=== PATIENT | male | born 1935 | race Caucasian/White ===

== ENCOUNTER 2016-08-02 23:58 | Emergency (ER) | payer OTHER ==
[~2016-08-02] VITALS: Ht 172.7 cm; Wt 77.1 kg
[2016-08-03] MEDS ORDERED: FLUORESCEIN SODIUM OPHTH 1 EA STRIP ONE (00:03)
[2016-08-03] MEDS ORDERED: TETRACAINE HCL/PF 0.5% UD 2 ML BOTTLE ONE (00:03)
--- NOTE | 2016-08-03 00:05 | NUR ---
To bed 7 a 80 yo male bibself with c/o bilateral eye pain/irritation. patient denies trauma/foreign body in contact with eyes. eyes appears red. patient is aaox4, ambulatory with steady gait. vss. initiated comfort measures. awaiting for er md uribe.
--- NOTE | 2016-08-03 00:25 | NUR ---
Patient discharged to home in stable condition. Written and verbal after care instructions given. Patient verbalizes understanding of instruction. Patient is ambulatory with steady gait.
[2016-08-03 00:26] VITALS: BP 127/80
[2016-08-03] MEDS ORDERED: FLUORESCEIN SODIUM OPHTH 1 EA STRIP OP ONE (00:30)
== END 2016-08-03 00:35 | disposition home or self-care (01) ==
LOC: ER 08-03 00:02
DX: S05.01XA Injury of conjunctiva and corneal abrasion without foreign body, right eye, initial encounter (principal); S05.02XA Injury of conjunctiva and corneal abrasion without foreign body, left eye, initial encounter; F32.9 Major depressive disorder, single episode, unspecified; I10 Essential (primary) hypertension; X58.XXXA Exposure to other specified factors, initial encounter; Y92.89 Other specified places as the place of occurrence of the external cause; Y93.89 Activity, other specified; Y99.8 Other external cause status
CPT/HCPCS: 99283; A4606; Z7610

== ENCOUNTER 2017-01-25 16:23 | Emergency (ER) | payer MEDICARE, OTHER ==
[~2017-01-25] VITALS: Ht 170.2 cm; Wt 63.5 kg
--- NOTE | 2017-01-25 16:30 | NUR ---
RJ KENNEDY [facility]- NO KO, DENIES HITTING HEAD. NO PAIN OR DISCOMFORT. VSS
[2017-01-25 17:24] LABS: BASOPHILS % (AUTO) 0.4 % (0.0-2.0); EOSINOPHILS # (AUTO) 0.1 /CMM (0.0-0.7); EOSINOPHILS % (AUTO) 1.8 % (0.0-6.0); HEMATOCRIT 50 % (39-51); HEMOGLOBIN 16.8 g/dL (13.5-17.5); LYMPHOCYTES % (AUTO) 24.5 % (20.0-44.0); MEAN CORPUSCULAR HEMOGLOBIN 34 PG (26.0-33.0); MEAN CORPUSCULAR HGB CONC 34 g/dl (31.0-36.0); MEAN CORPUSCULAR VOLUME 102 fL (80-96); MONOCYTES # (AUTO) 0.7 /CMM (0.1-1.30); MONOCYTES % (AUTO) 9.1 % (2.0-12.0); NEUTROPHILS # (AUTO) 5.2 /CMM (1.8-8.9); NEUTROPHILS % (AUTO) 64.2 % (43.0-81.0); PLATELET COUNT (AUTO) 164 /CMM (150-450); RDW COEFFICIENT OF VARIATION 13.5 (11.5-15.0); RED BLOOD CELL COUNT(AUTO) 4.92 MIL/uL (4.5-6.0)
[2017-01-25 17:28] LABS: CALCIUM, SERUM 9.4 mg/dL (8.5-10.1); CARBON DIOXIDE 27 mmol/L (21-32); CHLORIDE 105 mmol/L (98-107); CREATININE 1.2 mg/dL (0.6-1.3); GLUCOSE 82 mg/dL (74-106); SODIUM SERUM 139 mmol/L (136-145); UREA NITROGEN, BLOOD 24 mg/dL (7-18)
[2017-01-25 17:34] LABS: INR 0.94 (0.87-1.13); PROTHROMBIN TIME 9.8 SECS (9.5-12.7)
--- NOTE | 2017-01-25 17:47 | NUR ---
Patient discharged to home in stable condition. Written and verbal after care instructions given. Patient verbalizes understanding of instruction.
[2017-01-25 17:48] VITALS: BP 181/85
== END 2017-01-25 17:50 | disposition home or self-care (01) ==
LOC: ER 16:27
DX: S00.03XA Contusion of scalp, initial encounter (principal); R00.1 Bradycardia, unspecified; I10 Essential (primary) hypertension; R51 Headache; F32.9 Major depressive disorder, single episode, unspecified; F10.10 Alcohol abuse, uncomplicated; R79.1 Abnormal coagulation profile; W01.198A Fall on same level from slipping, tripping and stumbling with subsequent striking against other object, initial encounter; Y93.9 Activity, unspecified; Y92.89 Other specified places as the place of occurrence of the external cause; Y99.8 Other external cause status
CPT/HCPCS: 36415; 70450; 80048; 85025; 85730; 99285; A4606; Z7610

== ENCOUNTER 2017-04-15 00:41 | Emergency (ER) | payer MEDICARE, OTHER ==
[~2017-04-15] VITALS: Ht 172.7 cm; Wt 72.6 kg
[2017-04-15 00:55] VITALS: BP 147/83
--- NOTE | 2017-04-15 01:07 | NUR ---
DR ROMERO AT BEDSIDE TO EVALUATE PATIENT.
[2017-04-15] MEDS ORDERED: HYDROCODONE/APAP 5/325MG 1 EACH TABLET ONE (01:19)
[2017-04-15] MEDS ORDERED: GABAPENTIN 100 MG CAPSULE ONE (01:19)
[2017-04-15] MEDS ORDERED: HYDROCODONE/APAP 5/325MG 1 EACH TABLET PO ONE (01:30)
[2017-04-15] MEDS ORDERED: GABAPENTIN 100 MG CAPSULE PO ONE (01:30)
== END 2017-04-15 01:28 | disposition home or self-care (01) ==
LOC: ER 00:44
DX: G62.9 Polyneuropathy, unspecified (principal); I10 Essential (primary) hypertension; F32.9 Major depressive disorder, single episode, unspecified
CPT/HCPCS: A4606; Z7610

== ENCOUNTER 2018-08-08 14:30 | Inpatient (IN) | payer OTHER ==
[~2018-08-08] VITALS: Ht 170.2 cm; Wt 52.6 kg
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
--- NOTE | 2018-08-08 15:04 | NUR ---
JUNAID CALLED FOR PLUMBER'S HELPER
--- NOTE | 2018-08-08 15:15 | NUR ---
VISUAL MERCHANDISING SPECIALIST JUNAID AT BEDSIDE FOR CONSULT.
[2018-08-08 15:16] LABS: BASOPHILS # (AUTO) 0.1 /CMM (0.0-0.2); BASOPHILS % (AUTO) 1.2 % (0.0-2.0); EOSINOPHILS % (AUTO) 1.2 % (0.0-6.0); HEMATOCRIT 44 % (39-51); HEMOGLOBIN 15.4 g/dL (13.5-17.5); LYMPHOCYTES # (AUTO) 1.3 /CMM (0.8-4.8); LYMPHOCYTES % (AUTO) 20.3 % (20.0-44.0); MEAN CORPUSCULAR HGB CONC 35 g/dl (31.0-36.0); MEAN CORPUSCULAR VOLUME 104 fL (80-96); MONOCYTES # (AUTO) 0.5 /CMM (0.1-1.30); MONOCYTES % (AUTO) 7.9 % (2.0-12.0); NEUTROPHILS # (AUTO) 4.3 /CMM (1.8-8.9); NEUTROPHILS % (AUTO) 69.4 % (43.0-81.0); PLATELET COUNT (AUTO) 196 /CMM (150-450); RED BLOOD CELL COUNT(AUTO) 4.24 MIL/uL (4.5-6.0); WHITE BLOOD COUNT (AUTO) 6.2 K/uL (4.3-11.0)
[2018-08-08 15:23] LABS: CALCIUM, SERUM 9.5 mg/dL (8.5-10.1); CARBON DIOXIDE 25 mmol/L (21-32); CHLORIDE 105 mmol/L (98-107); CREATININE 1.3 mg/dL (0.6-1.3); GLUCOSE 91 mg/dL (74-106); SODIUM SERUM 140 mmol/L (136-145); UREA NITROGEN, BLOOD 30 mg/dL (7-18)
[2018-08-08 15:27] LABS: APPEARANCE,URINE Clear (CLEAR); BILIRUBIN,URINE Negative (NEGATIVE); BLOOD, URINE Negative Ery/uL (NEGATIVE); COLOR,URINE Yellow (YELLOW); KETONES,URINE Trace (NEGATIVE); LEUKOCYTE ESTERASE ,URINE Negative (NEGATIVE); NITRITE, URINE Negative (NEGATIVE); PH,URINE 5.5 (5.0-8.0); PROTEIN,URINE Negative (NEGATIVE); UGLUCOSE Negative (NEGATIVE); UROBILINOGEN,URINE 0.2 EU/dL (0.2)
[2018-08-08 15:29] LABS: ALANINE AMINOTRANSFERASE 23 U/L (12-78); ALBUMIN 3.9 g/dL (3.4-5.0); ALCOHOL, BLOOD < 3 mg/dL (0-0); ALKALINE PHOSPHATASE 55 U/L (46-116); ASPARTATE AMINOTRANSFERASE 32 U/L (15-37); BILIRUBIN,DIRECT 0.3 mg/dL (0.0-0.2); BILIRUBIN,TOTAL 2.2 mg/dL (0.2-1.0); SALICYLATE < 2.8 mg/dL (2.8-20.0); TOTAL PROTEIN, SERUM 7.3 g/dL (6.4-8.2)
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
[2018-08-08] MEDS ORDERED: FLUO40CA49 PO (16:06)
[2018-08-08] MEDS ORDERED: ATEN50TA PO (16:06)
[2018-08-08] MEDS ORDERED: ALLO300T2 PO (16:06)
[2018-08-08] MEDS ORDERED: GABA-532 PO (16:06)
[2018-08-08] MEDS ORDERED: ALPR0.255 PO (16:06)
[2018-08-08] MEDS ORDERED: HYDR12.5 PO (16:06)
[2018-08-08] MEDS ORDERED: IRBE150T28 PO (16:06)
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
[2018-08-08 16:10] LABS: EOSINOPHILS % (MANUAL) 1 % (0-4); LYMPHOCYTES % (MANUAL) 21 % (16-48); MONOCYTES % (MANUAL) 6 % (0-11.0); NEUTROPHILS % (MANUAL) 72 (42-76)
--- NOTE | 2018-08-08 17:38 | NUR ---
CALLED LUCÍA MORELOS FOR EVAL.
--- NOTE | 2018-08-08 18:31 | NUR ---
CALLED FOR [facility] BED. PINKY AT BEDSIDE.
--- NOTE | 2018-08-08 19:38 | NUR ---
PATIENT IN STABLE CONDITION SEEN BY PORTER FOR EVALUATION. PATIENT IN NAD, VSS. ENDORSED TO [facility] FOR [facility]. WAITING FOR A BED.
--- NOTE | 2018-08-08 20:21 | NUR ---
REPORT GIVEN TO RN AT [facility]
[2018-08-08 20:50] VITALS: BP 163/82
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
[2018-08-08] MEDS ORDERED: MAGNESIUM HYDROXIDE 30 ML UDC PO PRN (21:30)
[2018-08-08] MEDS ORDERED: ACETAMINOPHEN 325 MG TABLET PO PRN (21:30)
[2018-08-08] MEDS ORDERED: TEMAZEPAM 7.5 MG CAPSULE PO PRN (21:30)
[2018-08-08] MEDS ORDERED: MAG HYDROX/AL HYDROX/SIMETH 30 ML UDC PO PRN (21:30)
[2018-08-08] MEDS ORDERED: clonazePAM 0.5 MG TABLET PO PRN (21:30)
--- NOTE | 2018-08-08 21:30 | NUR ---
RN NOTES: SPOKE WITH JW MONAHAN. INFORMED HIM THAT PT IS HERE AND MED RECON NEEDS TO BE DONE. JW MONAHAN AWARE.
--- NOTE | 2018-08-08 21:50 | NUR ---
RN NOTES: PT REQUESTING FOR SLEEPING AID. PT WAS ADMINISTERED RESTORIL 7.5MG PO. WILL CONTINUE TO MONITOR.
[2018-08-09 01:52] VITALS: BP 130/71
--- NOTE | 2018-08-09 03:36 | NUR ---
RN NOTES: PT VERY ANXIOUS THAT HE CANNOT SLEEP EVEN WITH THE RISPERDAL. PT GIVEN KLONOPIN 0.25MG PO. "YOU HAVE NO IDEA WHAT I HAVE TO GO THROUGH TOMORROW WHEN I GET OUT OF HERE." WHEN ASKED, PT DID NOT EXPAND. WILL CONTINUE TO MONITOR.
[2018-08-09 08:00] VITALS: BP 121/68
[2018-08-09] MEDS ORDERED: ALLOPURINOL 100 MG TABLET PO SCH (09:00)
[2018-08-09] MEDS ORDERED: Medication Not On Formulary EA (Fluoxetine Hcl 40 MG) PO SCH (09:00)
[2018-08-09] MEDS ORDERED: LOSARTAN POTASSIUM 50 MG TABLET PO SCH (09:00)
[2018-08-09] MEDS ORDERED: IRBESARTAN (150MG) 150 MG TABLET PO SCH (09:00)
[2018-08-09] MEDS ORDERED: HYDROCHLOROTHIAZIDE 25 MG TABLET PO SCH (09:00)
[2018-08-09] MEDS ORDERED: ATENOLOL 50 MG TABLET PO SCH (09:00)
[2018-08-09] MEDS ORDERED: GABAPENTIN 100 MG CAPSULE PO SCH (09:00)
[2018-08-09] MEDS ORDERED: ENSURE ENLIVE 237 ML LIQUID (VANILLA) PO SCH (12:00)
--- NOTE | 2018-08-09 12:15 | NUR ---
UR Note: Santos ([phone]) from [facility] called the SW and stated that he does not see criteria for inpatient stay for the pt. He stated that he would like any records to be sent over and that he may have to schedule a peer to peer review.
--- NOTE | 2018-08-09 13:10 | NUR ---
SENG called the pt's brother, Ron ([phone]), and informed him that the pt is being discharged back to his home today. He stated that he would be willing to pear picker the pt and assist him in being discharged home. He stated that he would arrive around 4pm.
--- NOTE | 2018-08-09 16:06 | NUR ---
Discharge Note: Pt was discharged back to his home located at [address] [place] [id number]; ([phone]). Pt was picked up by his brother, Ron ([phone]), around 4:30pm. Upon discharge, the pt appeared to be in a euthymic mood and presented with a cooperative affect. Pt denied both suicidal and homicidal ideation as well as auditory and visual hallucinations. Pt was referred to [facility] [place] [address] [place] [address]; ; fax was sent to: [phone], for psychiatric services. Pt will continue to be under the care of his cherry cutter, Dr. Leif Arenas, located at [address] [place] [id number]; .
--- NOTE | 2018-08-09 16:20 | NUR ---
[facility]/RN-NOTES PATIENT DISCHARGE TO HOME TODAY. DR. FIELDS ( PSYCHIATRIST) AND GODFREY PATEL ( ELECTRONICS MECHANIC APPRENTICE) AWARE AND AGREES OF PATIENT DISCHARGE WITH ORDERS. DISCHARGE MEDICATION WAS REVIEWED WITH THE PATIENT WITH UNDERSTANDING ALSO INSTRUCTED PATIENT TO F/U WITH PRIMARY PHYSICIAN AND PSYCHIATRIST AND GO TO THE NEAREST EMERGENCY FACILITY OR CALL 911 FOR EMERGENCY.PATIENT SIGNS ALL DISCHARGE PAPERS ,RX WAS GIVEN TO THE PATIENT, PATIENT DID NOT VERBALIZE SI/HI,DENIES VISUAL/AUDITORY HALLUCINATIONS AT THE TIME OF DISCHARGE. PATIENT LEFT THE UNIT IN STABLE CONDITION, AMBULATORY WITH STEADY GAIT,LEFT WITH ALL BELONGINGS. PATIENT WAS ACCOMPANIED IN THE LOBBY FOR SAFETY. TRUCK HOP BY BY BROTHER DAYANA MAS VIA PRIVATE CAR.
[2018-08-09 16:23] VITALS: BP 134/82
--- NOTE | 2018-08-10 12:32 | NUR ---
Psychosocial Note: Pt was evaluated by his psychiatrist, Dr. Hernandez, upon admission and stated that pt does not meet criteria for inpatient stay. Pt did not present as gravely disabled, danger to others, or danger to self. Pt is alert and oriented x4 (time, place, self and situation). Pts initial discharge plan is to return to his home located at [address] [place] [address]; ([phone]). Pt is ambulatory with a steady gait. Pt appeared to be well groomed and appropriately dressed. Pt denied both suicidal and homicidal ideation as well as auditory and visual hallucinations. Pt appeared to be in a euthymic mood and presented as a cooperative affect. Pts insight and judgment is fair.
--- NOTE | 2018-08-10 13:11 | NUR ---
UR Note: SENG faxed a discharge clinical to Santos from [facility] to the fax number: [phone].
== END 2018-08-09 16:20 | disposition home or self-care (01) | DRG 880 ==
LOC: ER 14:34 → GPS 19:45
PROVIDERS: ADMIT Psychiatry & Neurology Psychiatry; ATTEND Internal Medicine
DX: F41.9 Anxiety disorder, unspecified (principal); I10 Essential (primary) hypertension; Z79.899 Other long term (current) drug therapy; F10.20 Alcohol dependence, uncomplicated; Y90.0 Blood alcohol level of less than 20 mg/100 ml
CPT/HCPCS: 36415; 80048-TC; 80076-TC; 80305; 81000-TC; 85025-TC; 87081-TC; G0480

== ENCOUNTER 2018-10-21 08:20 | Inpatient (IN) | payer MEDICARE, OTHER ==
[~2018-10-21] VITALS: Ht 170.2 cm; Wt 58.1 kg
[~2018-10-21 08:20] MED LIST: ALLO300T2 PO; ALPR0.255 PO; ATEN50TA PO; FLUO40CA49 PO; GABA-532 PO; HYDR12.5 PO; IRBE150T28 PO
[2018-10-21] MEDS ORDERED: ONDANSETRON HCL/PF 4 MG/2 ML VIAL ONE (08:46)
[2018-10-21] MEDS ORDERED: MECLIZINE HCL 12.5 MG TABLET ONE (08:47)
[2018-10-21] MEDS ORDERED: ONDANSETRON HCL/PF 4 MG/2 ML VIAL IVP ONE (09:00)
[2018-10-21] MEDS ORDERED: IV NS 0.9% 1,000 ML BAG IV ONE (09:00)
[2018-10-21] MEDS ORDERED: MECLIZINE HCL 12.5 MG TABLET PO ONE (09:00)
[2018-10-21 09:05] LABS: BASOPHILS # (AUTO) 0.1 /CMM (0.0-0.2); BASOPHILS % (AUTO) 0.9 % (0.0-2.0); HEMATOCRIT 39 % (39-51); HEMOGLOBIN 13.4 g/dL (13.5-17.5); LYMPHOCYTES # (AUTO) 1.6 /CMM (0.8-4.8); LYMPHOCYTES % (AUTO) 26.4 % (20.0-44.0); MEAN CORPUSCULAR HGB CONC 34 g/dl (31.0-36.0); MEAN CORPUSCULAR VOLUME 105 fL (80-96); MONOCYTES # (AUTO) 0.6 /CMM (0.1-1.30); MONOCYTES % (AUTO) 9.6 % (2.0-12.0); NEUTROPHILS # (AUTO) 3.5 /CMM (1.8-8.9); NEUTROPHILS % (AUTO) 59.1 % (43.0-81.0); PLATELET COUNT (AUTO) 185 /CMM (150-450); RED BLOOD CELL COUNT(AUTO) 3.73 MIL/uL (4.5-6.0)
[2018-10-21 09:15] LABS: CALCIUM, SERUM 9.2 mg/dL (8.5-10.1); CARBON DIOXIDE 29 mmol/L (21-32); CHLORIDE 106 mmol/L (98-107); CREATININE 1.2 mg/dL (0.6-1.3); GLUCOSE 95 mg/dL (74-106); SODIUM SERUM 142 mmol/L (136-145); UREA NITROGEN, BLOOD 21 mg/dL (7-18)
[2018-10-21 09:33] LABS: ALANINE AMINOTRANSFERASE 23 U/L (12-78); ALBUMIN 3.4 g/dL (3.4-5.0); ALKALINE PHOSPHATASE 55 U/L (46-116); ASPARTATE AMINOTRANSFERASE 23 U/L (15-37); BILIRUBIN,DIRECT 0.2 mg/dL (0.0-0.2); BILIRUBIN,TOTAL 0.8 mg/dL (0.2-1.0); TOTAL PROTEIN, SERUM 6.4 g/dL (6.4-8.2)
[2018-10-21 09:55] LABS: APPEARANCE,URINE Clear (CLEAR); BILIRUBIN,URINE Negative (NEGATIVE); BLOOD, URINE Negative Ery/uL (NEGATIVE); COLOR,URINE Yellow (YELLOW); KETONES,URINE Negative (NEGATIVE); LEUKOCYTE ESTERASE ,URINE Negative (NEGATIVE); NITRITE, URINE Negative (NEGATIVE); PROTEIN,URINE Negative (NEGATIVE); UGLUCOSE Negative (NEGATIVE); UROBILINOGEN,URINE 0.2 EU/dL (0.2)
[2018-10-21] MEDS ORDERED: ACETAMINOPHEN 325 MG TABLET PO PRN (12:30)
[2018-10-21] MEDS ORDERED: MECLIZINE HCL 12.5 MG TABLET PO PRN (12:30)
[2018-10-21] MEDS ORDERED: ONDANSETRON HCL/PF 4 MG/2 ML VIAL IVP PRN (12:30)
[2018-10-21] MEDS ORDERED: MAG HYDROX/AL HYDROX/SIMETH 30 ML UDC PO PRN (12:30)
[2018-10-21] MEDS ORDERED: MAGNESIUM HYDROXIDE 30 ML UDC PO PRN (12:30)
[2018-10-21] MEDS ORDERED: ZOLPIDEM TARTRATE 5 MG TABLET PO PRN (12:30)
[2018-10-21] MEDS ORDERED: Z GUARD REMEDY 2 OZ OINT TP PRN (12:30)
[2018-10-21] MEDS ORDERED: HYDROCODONE/APAP 5/325MG 1 EACH TABLET PO PRN (12:30)
[2018-10-21 16:00] VITALS: BP 150/77
[2018-10-21 20:00] VITALS: BP 130/70
[2018-10-22] VITALS: BP 151/72
[2018-10-22] MEDS: IV NS 0.9% 1,000 ML IV PRN ×2 (01:59→11:35)
[2018-10-22 06:30] LABS: BASOPHILS % (AUTO) 0.7 % (0.0-2.0); EOSINOPHILS % (AUTO) 3.5 % (0.0-6.0); HEMATOCRIT 38 % (39-51); HEMOGLOBIN 13.2 g/dL (13.5-17.5); LYMPHOCYTES # (AUTO) 1.7 /CMM (0.8-4.8); LYMPHOCYTES % (AUTO) 24.6 % (20.0-44.0); MEAN CORPUSCULAR HGB CONC 35 g/dl (31.0-36.0); MEAN CORPUSCULAR VOLUME 104 fL (80-96); MONOCYTES # (AUTO) 0.5 /CMM (0.1-1.30); MONOCYTES % (AUTO) 7.7 % (2.0-12.0); NEUTROPHILS # (AUTO) 4.3 /CMM (1.8-8.9); NEUTROPHILS % (AUTO) 63.5 % (43.0-81.0); PLATELET COUNT (AUTO) 171 /CMM (150-450); RED BLOOD CELL COUNT(AUTO) 3.67 MIL/uL (4.5-6.0); WHITE BLOOD COUNT (AUTO) 6.8 K/uL (4.3-11.0)
[2018-10-22 06:49] LABS: CALCIUM, SERUM 8.5 mg/dL (8.5-10.1); CARBON DIOXIDE 26 mmol/L (21-32); CHLORIDE 108 mmol/L (98-107); CREATININE 1.1 mg/dL (0.6-1.3); GLUCOSE 84 mg/dL (74-106); PHOSPHORUS 3.1 mg/dL (2.5-4.9); POTASSIUM 3.8 mmol/L (3.5-5.1); SODIUM SERUM 143 mmol/L (136-145); UREA NITROGEN, BLOOD 20 mg/dL (7-18)
[2018-10-22 06:56] LABS: CHOLESTEROL 158 mg/dL (<200); HDL CHOLESTEROL 40 mg/dL (40-60); LDL 100 mg/dL (0-99); TRIGLYCERIDES 181 mg/dL (30-150)
[2018-10-22 08:00] VITALS: BP 158/74
[2018-10-22] MEDS: FLUOXETINE HCL 20 MG CAPSULE PO SCH (08:21)
[2018-10-22] MEDS: ALLOPURINOL 100 MG TABLET PO SCH (08:21)
[2018-10-22] MEDS ORDERED: LOSARTAN POTASSIUM 50 MG TABLET PO SCH (09:00)
[2018-10-22] MEDS ORDERED: HYDROCHLOROTHIAZIDE 25 MG TABLET PO SCH (09:00)
[2018-10-22] MEDS ORDERED: IRBESARTAN (150MG) 150 MG TABLET PO SCH (09:00)
[2018-10-22] MEDS: VALSARTAN 80 MG TABLET PO SCH (12:42)
[2018-10-22 15:30] VITALS: BP 125/74
[2018-10-22 20:00] VITALS: BP 175/80
[2018-10-23] VITALS: BP 155/68
[2018-10-23] MEDS: IV NS 0.9% 1,000 ML IV PRN (00:26)
[2018-10-23 04:00] VITALS: BP 145/68
[2018-10-23 08:00] VITALS: BP 144/81
[2018-10-23] MEDS ORDERED: IRBE150T28 PO (08:30)
[2018-10-23] MEDS: ALLOPURINOL 100 MG TABLET PO SCH (08:44)
[2018-10-23] MEDS: FLUOXETINE HCL 20 MG CAPSULE PO SCH (08:44)
[2018-10-23 08:45] VITALS: BP 144/81
[2018-10-23] MEDS: VALSARTAN 80 MG TABLET PO SCH (08:45)
== END 2018-10-23 13:50 | disposition home or self-care (01) | DRG 310 ==
LOC: ER 08:20 → TELE 11:13 → MED 10-23 09:30
PROVIDERS: ADMIT Family Medicine; ATTEND Family Medicine
DX: R00.1 Bradycardia, unspecified (principal); I10 Essential (primary) hypertension; F32.9 Major depressive disorder, single episode, unspecified; Z79.899 Other long term (current) drug therapy; Z98.890 Other specified postprocedural states; R79.89 Other specified abnormal findings of blood chemistry; T44.7X5A Adverse effect of beta-adrenoreceptor antagonists, initial encounter; Y92.009 Unspecified place in unspecified non-institutional (private) residence as the place of occurrence of the external cause; H81.10 Benign paroxysmal vertigo, unspecified ear; E86.0 Dehydration
CPT/HCPCS: 36415; 70450-TC; 71045-TC; 80048-TC; 80061-TC; 80076-TC; 81000-TC; 82962-TC; 83605-TC; 83735-TC; 84100-TC; 84484-TC; 85025-TC; 85730-TC; 87040-TC; 87081-TC; 87086-TC; 93307-TC; G0378; J2405; J7030; J8597